=== PATIENT | female | born 1995 | race Caucasian/White ===

== ENCOUNTER → 2017-06-25 | Outpatient (CLI) | payer BC | LOC: COL.PUL 13:00 | DX: R05 Cough (principal); R00.0 Tachycardia, unspecified ==

== ENCOUNTER 2017-07-21 16:01 | Emergency (ER) | payer BC ==
[~2017-07-21] VITALS: Ht 157.5 cm; Wt 118.2 kg
[2017-07-21 16:07] VITALS: BP 123/68; TEMP 98.9
[2017-07-21] MEDS ORDERED: LEXAPRO20 MG PO (16:12)
[2017-07-21] MEDS ORDERED: RISPERDAL 0.5M0.5 MG PO (16:12)
[2017-07-21] MEDS ORDERED: FORT1000TA PO (16:13)
[2017-07-21] MEDS ORDERED: PREDNISONE20 MG PO (17:13)
[2017-07-21] MEDS ORDERED: TESSALON P100 MG/CAP PO (17:13)
[2017-07-21 17:33] VITALS: PULSE 120
== END 2017-07-21 17:33 | disposition home or self-care (01) ==
LOC: COL.ER 16:01
DX: J45.909 Unspecified asthma, uncomplicated (principal)

== ENCOUNTER 2017-10-17 17:50 | Emergency (ER) | payer BC ==
[~2017-10-17] VITALS: Ht 157.5 cm; Wt 122.7 kg
[~2017-10-17 17:50] MED LIST: FORT1000TA PO; LEXAPRO20 MG PO; PREDNISONE20 MG PO; RISPERDAL 0.5M0.5 MG PO; TESSALON P100 MG/CAP PO
[2017-10-17 17:52] VITALS: BP 119/87; PULSE 85; TEMP 98
== END 2017-10-17 19:09 | disposition home or self-care (01) ==
LOC: COL.ER 17:50
DX: S93.401A Sprain of unspecified ligament of right ankle, initial encounter (principal); K21.9 Gastro-esophageal reflux disease without esophagitis; Z87.42 Personal history of other diseases of the female genital tract; Z79.84 Long term (current) use of oral hypoglycemic drugs; X50.0XXA Overexertion from strenuous movement or load, initial encounter